=== PATIENT | male | born 1965 | race Two or more races ===

== ENCOUNTER 2016-08-07 09:24 | Emergency (ER) | payer OTHER ==
[2016-08-07] MEDS ORDERED: [UNRECOGNIZED DRUG - REMARK] (10:14)
[2016-08-07] MEDS ORDERED: HYPERTENSION MED (10:14)
[2016-08-07 10:56] LABS: BASO % 0.4 % (0-2); EOS % 0.1 % (0-7); HCT-HEMATOCRIT 34.3 % (36.0-53.5); HGB-HEMOGLOBIN 11.5 gm/dl (13.5-17.0); IMMATURE GRANULOCYTES ABSOLUTE 0.01 tho/cmm (0-0.03); IMMATURE GRANULOCYTES PERCENT 0.1 % (0-0.3); LYMPH % 17.2 % (20-45); LYMPH ABSOLUTE COUNT 1.2 tho/cmm (0.8-4.5); MCHC MEAN CORPUSCULAR HGB CONC 33.5 % (32.0-36.0); MCV (MEAN CELL VOLUME) 59.8 fl (82.0-96.0); MONO % 16.6 % (0-12); MONOCYTE ABSOLUTE COUNT 1.1 tho/cmm (0.0-1.2); NEUTROPHIL ABSOLUTE COUNT 4.4 tho/cmm (1.6-8.0); NEUTROPHIL-AUTOMATED 4.4 tho/cmm (1.6-8.0); NEUTROPHILS % 65.6 % (40-80); PLATELET COUNT 135 tho/cmm (150-450); RED BLOOD COUNT 5.74 mil/cmm (4.40-5.70); RED CELL DISTRIBUTION WIDTH 15.5 % (12.4-16.4); WHITE BLOOD COUNT 6.8 tho/cmm (4.0-10.0)
[2016-08-07 11:06] LABS: ALB/GLOB RATIO 0.8 (0.8-2.0); ALBUMIN 3.3 g/dl (3.5-5.0); ALKALINE PHOSPHATASE 60 U/L (33-138); ALT/SGPT 40 U/L (12-78); ANION GAP 12 mmol/L (0-20); AST/SGOT 51 U/L (10-40); BILIRUBIN,TOTAL 0.9 mg/dl (0.0-1.5); BLOOD UREA NITROGEN 14 mg/dl (6-24); CALCIUM 8.4 mg/dl (8.5-10.5); CARBON DIOXIDE-VENOUS 23 mmol/L (22-32); CHLORIDE 105 mmol/l (96-110); GLUCOSE 116 mg/dL (70-110); POTASSIUM 4.1 mmol/L (3.7-5.1); SODIUM 136 mmol/L (135-145); eGFR VALUE FOR BLACK 89 mL/Min
[2016-08-07] MEDS ORDERED: AZITHROMYCIN250 M1 PO (12:50)
== END 2016-08-07 13:13 ==
LOC: EDMED 09:24
PROVIDERS: Nurse Practitioner Family
DX: J18.1 Lobar pneumonia, unspecified organism (principal); E11.9 Type 2 diabetes mellitus without complications; I10 Essential (primary) hypertension; B19.10 Unspecified viral hepatitis B without hepatic coma; Z79.899 Other long term (current) drug therapy
CPT/HCPCS: J7030